=== PATIENT | male | born 1990 | race Caucasian/White ===

== ENCOUNTER 2018-03-25 06:48 | Emergency (ER) | payer SELFPAY ==
[2018-03-25 06:49] VITALS: BP 110/66; PULSE 88; RESP 16; TEMP 36.9; O2SAT 94; BMI 21.5
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
--- NOTE | 2018-03-25 07:00 | ED.RN ---
LEFT MESSAGE FOR PT FATHER FILEMON [phone]
[2018-03-25] MEDS: 0.9% Normal Saline 1,000 ML 1000 ML IV (07:06)
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
[2018-03-25 07:12] LABS: Absolute Lymphocyte Count 1.16 X10^3/ul (0.83-4.51); Absolute Neutrophil Count 2.6 X10^3/uL (2.0-7.7); Basophil# 0.01 X10^3/uL; Basophil% 0.2 % (0-1); Eosinophil# 0.07 X10^3/uL; Eosinophils% 1.6 % (0-5); Hemoglobin 16.2 g/dl (13.0-16.5); Lymphocyte # 1.16 X10^3/ul (4.0); Mean Corp Hgb Conc 34.5 g/gl (32-36); Mean Corpuscular Hgb 30.9 pg (27.0-32.0); Mean Corpuscular Volume 89.7 fL (80-94); Mean Platelet Vol. 9.9 fl (6.2-12.0); Monocyte% 9.3 % (0-10); Neutrophil # 2.64 X10^3/uL (2.7-7.7); Neutrophil % 61.7 % (47-70); POSITIVE COUNT NO; POSITIVE DIFFERENTIAL NO; POSITIVE MORPHOLOGY NO; Platelet Count 208 K/mm3 (150-450); RBC Distribution Width CV 12.9 % (11.6-14.6); RBC Distribution Width SD 42.4 fl (35.1-43.9); Red Blood Count 5.24 M/mm3 (4.6-6.2); White Blood Count 4.3 K/mm3 (4.4-11.0)
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
[2018-03-25 07:23] LABS: Anion Gap 5 (5-15); BUN 12 mg/dL (7-18); BUN/Creat Ratio 11.2 RATIO (10-20); Calcium,Total 8.2 mg/dL (8.5-10.1); Chloride 107 mmol/L (98-107); Creatinine, Serum 1.07 mg/dL (0.70-1.30); EST Glomerular Filtration Rate 89 mL/min (>60); Est Glom Filt Rate - Afr Amer 107 mL/min (>60); Estimated Creatinine Clearance 100.68 ml/min; Glucose 102 mg/dL (74-106); Potassium 3.5 mmol/L (3.5-5.1); Sodium Level 141 mmol/L (136-145)
[2018-03-25 08:03] VITALS: BP 115/85; PULSE 76; RESP 18; O2SAT 94
[2018-03-25 08:26] LABS: Alcohol, Blood (Medical)-Serum < 3.0 mg/dL
[2018-03-25] MEDS: Ondansetron 4 MG/2 ML Vial IV (08:56)
--- NOTE | 2018-03-25 09:35 | ED.RN ---
[facility]
[2018-03-25 09:36] VITALS: RESP 16
== END 2018-03-25 09:39 | disposition short-term general hospital (02) ==
PROVIDERS: Emergency Provider Emergency Medicine
DX: S06.2X9A Diffuse traumatic brain injury with loss of consciousness of unspecified duration, initial encounter (principal); S27.321A Contusion of lung, unilateral, initial encounter; S00.81XA Abrasion of other part of head, initial encounter; S60.512A Abrasion of left hand, initial encounter; M54.2 Cervicalgia; V89.2XXA Person injured in unspecified motor-vehicle accident, traffic, initial encounter; Y93.9 Activity, unspecified; Y92.9 Unspecified place or not applicable; Y99.9 Unspecified external cause status
CPT/HCPCS: 70450; 71260; 72125; 73130; 74177; 80048; 80320; 85025; 96361; 96374; 99285; J7030; Q9967; A4216; G0480; J2405